=== PATIENT | male | born 1955 | race Caucasian/White ===

== ENCOUNTER 2022-08-06 08:48 | Inpatient (IN) | payer BC, MEDICARE ==
[2022-08-06] MEDS: metFORMIN 500 MG Tab PO SCH (17:13)
[2022-08-07] MEDS: metFORMIN 500 MG Tab PO SCH ×2 (08:27→18:22)
[2022-08-07] MEDS: Aspirin 81 MG Tab.Chew PO SCH (08:29)
[2022-08-07] MEDS: Bumetanide 1 MG Tab PO SCH (08:29)
[2022-08-07] MEDS: Losartan 50 MG Tab PO SCH (08:30)
[2022-08-07] MEDS: Folic Acid 1 MG Tab PO SCH (08:30)
[2022-08-07] MEDS: Nicotine 21 MG/24 Hr Patch TRDERM SCH (08:31)
[2022-08-07] MEDS: Potassium Chloride 20 MEQ Tab.ER PO SCH (08:32)
[2022-08-07] MEDS: atorvaSTATin 10 MG Tab PO SCH (08:33)
[2022-08-07] MEDS: Thiamine 100 MG Tab PO SCH (08:33)
[2022-08-07] MEDS: Cholecalciferol (Vitamin D3) 25 MCG Tab PO SCH (08:33)
[2022-08-07] MEDS: Cyanocobalamin (Vitamin B12) 500 MCG Tab PO SCH (08:33)
[2022-08-08] MEDS: Nicotine 21 MG/24 Hr Patch TRDERM SCH (09:05)
[2022-08-08] MEDS: metFORMIN 500 MG Tab PO SCH ×2 (09:06→18:15)
[2022-08-08] MEDS: Bumetanide 1 MG Tab PO SCH (09:07)
[2022-08-08] MEDS: Thiamine 100 MG Tab PO SCH (09:07)
[2022-08-08] MEDS: Aspirin 81 MG Tab.Chew PO SCH (09:07)
[2022-08-08] MEDS: Potassium Chloride 20 MEQ Tab.ER PO SCH (09:08)
[2022-08-08] MEDS: atorvaSTATin 10 MG Tab PO SCH (09:08)
[2022-08-08] MEDS: Folic Acid 1 MG Tab PO SCH (09:09)
[2022-08-08] MEDS: Cholecalciferol (Vitamin D3) 25 MCG Tab PO SCH (09:09)
[2022-08-08] MEDS: Cyanocobalamin (Vitamin B12) 500 MCG Tab PO SCH (09:10)
[2022-08-08] MEDS: Acetaminophen 325 MG Tab PO PRN ×2 (09:30→21:22)
[2022-08-08] MEDS: Losartan 50 MG Tab PO SCH (14:08)
[2022-08-09] MEDS: metFORMIN 500 MG Tab PO SCH ×2 (07:00→18:18)
[2022-08-09] MEDS: Aspirin 81 MG Tab.Chew PO SCH (09:06)
[2022-08-09] MEDS: Bumetanide 1 MG Tab PO SCH (09:06)
[2022-08-09] MEDS: Losartan 50 MG Tab PO SCH (09:07)
[2022-08-09] MEDS: Folic Acid 1 MG Tab PO SCH (09:07)
[2022-08-09] MEDS: Nicotine 21 MG/24 Hr Patch TRDERM SCH (09:08)
[2022-08-09] MEDS: Potassium Chloride 20 MEQ Tab.ER PO SCH (09:09)
[2022-08-09] MEDS: Cholecalciferol (Vitamin D3) 25 MCG Tab PO SCH (09:10)
[2022-08-09] MEDS: atorvaSTATin 10 MG Tab PO SCH (09:10)
[2022-08-09] MEDS: Cyanocobalamin (Vitamin B12) 500 MCG Tab PO SCH (09:11)
[2022-08-09] MEDS: Thiamine 100 MG Tab PO SCH (09:11)
[2022-08-09] MEDS ORDERED: 50% Dextrose in Water 50 ML Syringe IVPUSH PRN (09:46)
[2022-08-09] MEDS ORDERED: Glucagon,Human Recombinant 1 MG Vial IM PRN (09:46)
[2022-08-09] MEDS ORDERED: Insulin Lispro 100 Unit/ML 3 ML KwikPen SUBCUT ONE (13:10)
[2022-08-09] MEDS: Insulin Lispro 100 Unit/ML 3 ML KwikPen SUBCUT SCH ×2 (13:12→18:18)
[2022-08-09] MEDS: Acetaminophen 325 MG Tab PO PRN (19:24)
[2022-08-10] MEDS: metFORMIN 500 MG Tab PO SCH ×2 (08:19→18:05)
[2022-08-10] MEDS: Insulin Lispro 100 Unit/ML 3 ML KwikPen SUBCUT SCH ×3 (08:20→18:06)
[2022-08-10] MEDS: Aspirin 81 MG Tab.Chew PO SCH (08:20)
[2022-08-10] MEDS: Cyanocobalamin (Vitamin B12) 500 MCG Tab PO SCH (08:21)
[2022-08-10] MEDS: Thiamine 100 MG Tab PO SCH (08:21)
[2022-08-10] MEDS: Folic Acid 1 MG Tab PO SCH (08:21)
[2022-08-10] MEDS: Bumetanide 1 MG Tab PO SCH (08:21)
[2022-08-10] MEDS: atorvaSTATin 10 MG Tab PO SCH (08:23)
[2022-08-10] MEDS: Cholecalciferol (Vitamin D3) 25 MCG Tab PO SCH (08:25)
[2022-08-10] MEDS: Nicotine 21 MG/24 Hr Patch TRDERM SCH (08:26)
[2022-08-10] MEDS: Potassium Chloride 20 MEQ Tab.ER PO SCH (08:26)
[2022-08-10] MEDS: Losartan 50 MG Tab PO SCH (08:31)
[2022-08-11] MEDS: Insulin Lispro 100 Unit/ML 3 ML KwikPen SUBCUT SCH ×3 (07:00→18:00)
[2022-08-11] MEDS: metFORMIN 500 MG Tab PO SCH ×2 (07:03→17:59)
[2022-08-11] MEDS: Aspirin 81 MG Tab.Chew PO SCH (08:35)
[2022-08-11] MEDS: Folic Acid 1 MG Tab PO SCH (08:36)
[2022-08-11] MEDS: Losartan 50 MG Tab PO SCH (08:36)
[2022-08-11] MEDS: Bumetanide 1 MG Tab PO SCH (08:36)
[2022-08-11] MEDS: atorvaSTATin 10 MG Tab PO SCH (08:37)
[2022-08-11] MEDS: Nicotine 21 MG/24 Hr Patch TRDERM SCH (08:37)
[2022-08-11] MEDS: Potassium Chloride 20 MEQ Tab.ER PO SCH (08:37)
[2022-08-11] MEDS: Cyanocobalamin (Vitamin B12) 500 MCG Tab PO SCH (08:38)
[2022-08-11] MEDS: Thiamine 100 MG Tab PO SCH (08:38)
[2022-08-11] MEDS: Cholecalciferol (Vitamin D3) 25 MCG Tab PO SCH (08:39)
[2022-08-12] MEDS: Insulin Lispro 100 Unit/ML 3 ML KwikPen SUBCUT SCH (07:03)
[2022-08-12] MEDS: metFORMIN 500 MG Tab PO SCH ×2 (07:08→17:43)
[2022-08-12] MEDS: Nicotine 21 MG/24 Hr Patch TRDERM SCH (08:51)
[2022-08-12] MEDS: Folic Acid 1 MG Tab PO SCH (08:52)
[2022-08-12] MEDS: Aspirin 81 MG Tab.Chew PO SCH (08:52)
[2022-08-12] MEDS: Thiamine 100 MG Tab PO SCH (08:52)
[2022-08-12] MEDS: Bumetanide 1 MG Tab PO SCH (08:53)
[2022-08-12] MEDS: atorvaSTATin 10 MG Tab PO SCH (08:53)
[2022-08-12] MEDS: Potassium Chloride 20 MEQ Tab.ER PO SCH (08:53)
[2022-08-12] MEDS: Cyanocobalamin (Vitamin B12) 500 MCG Tab PO SCH (08:53)
[2022-08-12] MEDS: Cholecalciferol (Vitamin D3) 25 MCG Tab PO SCH (08:54)
[2022-08-12] MEDS: Losartan 50 MG Tab PO SCH (08:55)
[2022-08-13] MEDS: Potassium Chloride 20 MEQ Tab.ER PO SCH (09:22)
[2022-08-13] MEDS: atorvaSTATin 10 MG Tab PO SCH (09:22)
[2022-08-13] MEDS: Bumetanide 1 MG Tab PO SCH (09:22)
[2022-08-13] MEDS: Aspirin 81 MG Tab.Chew PO SCH (09:22)
[2022-08-13] MEDS: Cyanocobalamin (Vitamin B12) 500 MCG Tab PO SCH (09:22)
[2022-08-13] MEDS: Cholecalciferol (Vitamin D3) 25 MCG Tab PO SCH (09:23)
[2022-08-13] MEDS: metFORMIN 500 MG Tab PO SCH ×2 (09:23→18:21)
[2022-08-13] MEDS: Folic Acid 1 MG Tab PO SCH (09:23)
[2022-08-13] MEDS: Losartan 50 MG Tab PO SCH (09:23)
[2022-08-13] MEDS: Nicotine 21 MG/24 Hr Patch TRDERM SCH (09:24)
[2022-08-13] MEDS: Thiamine 100 MG Tab PO SCH (09:28)
[2022-08-13 11:32] LABS: ESTIMATED GFR 101 mL/min (>60)
[2022-08-13] MEDS: Acetaminophen 650 MG Tab.ER PO SCH ×2 (12:44→20:21)
[2022-08-14] MEDS: metFORMIN 500 MG Tab PO SCH ×2 (08:11→17:57)
[2022-08-14] MEDS: Potassium Chloride 20 MEQ Tab.ER PO SCH (08:12)
[2022-08-14] MEDS: Aspirin 81 MG Tab.Chew PO SCH (08:12)
[2022-08-14] MEDS: atorvaSTATin 10 MG Tab PO SCH (08:12)
[2022-08-14] MEDS: Thiamine 100 MG Tab PO SCH (08:13)
[2022-08-14] MEDS: Cyanocobalamin (Vitamin B12) 500 MCG Tab PO SCH (08:13)
[2022-08-14] MEDS: Cholecalciferol (Vitamin D3) 25 MCG Tab PO SCH (08:13)
[2022-08-14] MEDS: Acetaminophen 650 MG Tab.ER PO SCH ×2 (08:14→20:48)
[2022-08-14] MEDS: Folic Acid 1 MG Tab PO SCH (08:15)
[2022-08-14] MEDS: Bumetanide 1 MG Tab PO SCH (08:15)
[2022-08-14] MEDS: Losartan 50 MG Tab PO SCH (08:15)
[2022-08-14] MEDS: Nicotine 21 MG/24 Hr Patch TRDERM SCH (08:22)
[2022-08-15] MEDS: metFORMIN 500 MG Tab PO SCH ×2 (07:03→18:10)
[2022-08-15] MEDS: Aspirin 81 MG Tab.Chew PO SCH (08:57)
[2022-08-15] MEDS: Nicotine 21 MG/24 Hr Patch TRDERM SCH (08:58)
[2022-08-15] MEDS: Folic Acid 1 MG Tab PO SCH (08:58)
[2022-08-15] MEDS: Bumetanide 1 MG Tab PO SCH (08:58)
[2022-08-15] MEDS: Losartan 50 MG Tab PO SCH (08:58)
[2022-08-15] MEDS: Potassium Chloride 20 MEQ Tab.ER PO SCH (08:59)
[2022-08-15] MEDS: atorvaSTATin 10 MG Tab PO SCH (08:59)
[2022-08-15] MEDS: Acetaminophen 650 MG Tab.ER PO SCH ×2 (09:01→20:19)
[2022-08-15] MEDS: Thiamine 100 MG Tab PO SCH (09:02)
[2022-08-15] MEDS: Cyanocobalamin (Vitamin B12) 500 MCG Tab PO SCH (09:02)
[2022-08-15] MEDS: Cholecalciferol (Vitamin D3) 25 MCG Tab PO SCH (09:03)
[2022-08-16] MEDS: metFORMIN 500 MG Tab PO SCH ×2 (07:08→18:24)
[2022-08-16] MEDS: Acetaminophen 650 MG Tab.ER PO SCH ×2 (09:17→20:58)
[2022-08-16] MEDS: Bumetanide 1 MG Tab PO SCH (09:19)
[2022-08-16] MEDS: Potassium Chloride 20 MEQ Tab.ER PO SCH (09:19)
[2022-08-16] MEDS: Aspirin 81 MG Tab.Chew PO SCH (09:19)
[2022-08-16] MEDS: Losartan 50 MG Tab PO SCH (09:20)
[2022-08-16] MEDS: Folic Acid 1 MG Tab PO SCH (09:20)
[2022-08-16] MEDS: Cholecalciferol (Vitamin D3) 25 MCG Tab PO SCH (09:20)
[2022-08-16] MEDS: Cyanocobalamin (Vitamin B12) 500 MCG Tab PO SCH (09:20)
[2022-08-16] MEDS: atorvaSTATin 10 MG Tab PO SCH (09:20)
[2022-08-16] MEDS: Nicotine 21 MG/24 Hr Patch TRDERM SCH (09:21)
[2022-08-16] MEDS: Thiamine 100 MG Tab PO SCH (09:21)
[2022-08-17] MEDS: metFORMIN 500 MG Tab PO SCH (07:14)
[2022-08-17] MEDS: Acetaminophen 650 MG Tab.ER PO SCH (08:00)
[2022-08-17] MEDS: Losartan 50 MG Tab PO SCH (08:00)
[2022-08-17] MEDS: atorvaSTATin 10 MG Tab PO SCH (08:00)
[2022-08-17] MEDS: Cyanocobalamin (Vitamin B12) 500 MCG Tab PO SCH (08:00)
[2022-08-17] MEDS: Thiamine 100 MG Tab PO SCH (08:00)
[2022-08-17] MEDS: Cholecalciferol (Vitamin D3) 25 MCG Tab PO SCH (08:00)
[2022-08-17] MEDS: Aspirin 81 MG Tab.Chew PO SCH (08:01)
[2022-08-17] MEDS: Nicotine 21 MG/24 Hr Patch TRDERM SCH (08:01)
[2022-08-17] MEDS: Folic Acid 1 MG Tab PO SCH (08:01)
[2022-08-17] MEDS: Bumetanide 1 MG Tab PO SCH (08:01)
[2022-08-17] MEDS: Potassium Chloride 20 MEQ Tab.ER PO SCH (08:01)
== END 2022-08-17 10:00 | disposition home or self-care (01) | DRG 861 ==
LOC: FB.MS 14:37 → UNDOADMIN 14:37 → FB.MS 14:40
PROVIDERS: ADMIT Family Medicine; ATTEND Family Medicine
DX: R53.1 Weakness (principal); F10.239 Alcohol dependence with withdrawal, unspecified; E44.0 Moderate protein-calorie malnutrition; E86.0 Dehydration; I87.2 Venous insufficiency (chronic) (peripheral); I25.10 Atherosclerotic heart disease of native coronary artery without angina pectoris; K76.0 Fatty (change of) liver, not elsewhere classified; K70.10 Alcoholic hepatitis without ascites; D69.6 Thrombocytopenia, unspecified; E11.9 Type 2 diabetes mellitus without complications; D53.9 Nutritional anemia, unspecified; I10 Essential (primary) hypertension; E78.5 Hyperlipidemia, unspecified; Z79.82 Long term (current) use of aspirin; Z95.5 Presence of coronary angioplasty implant and graft; Z93.3 Colostomy status; Z79.899 Other long term (current) drug therapy; F17.210 Nicotine dependence, cigarettes, uncomplicated; S46.219D Strain of muscle, fascia and tendon of other parts of biceps, unspecified arm, subsequent encounter; E66.09 Other obesity due to excess calories; Z68.36 Body mass index [BMI] 36.0-36.9, adult
CPT/HCPCS: 36415; 80053; 82947; 97110-GO; 97110-GP; 97116-GP; 97161-GP; 97165-GO; 97530-GO; 97530-GP; 97535-GO; A9270-GY; J1815